=== PATIENT | female | born 1995 ===

== ENCOUNTER 2019-01-30 17:15 | Emergency (ER) | payer BC ==
[2019-01-30] MEDS ORDERED: Ketorolac 60 MG/2 ML SDV IM ONE (17:31)
--- NOTE | 2019-01-30 17:35 | EDM.PDOC ---
ED HPI GENERAL MEDICAL PROBLEM - General Chief Complaint: Lower Extremity Injury/Pain Stated Complaint: POSSIBLE BROKE ANKLE Time Seen by Provider: 01/30/19 17:25 - History of Present Illness INITIAL COMMENTS - FREE TEXT/NARRATIVE: HISTORY AND PHYSICAL: History of present illness: The patient is a healthy 23-year-old female who presents with complaints of pain to her left ankle after she misstepped in some sand and rolled it all trying to prevent falling with the child in her arms. The patient works at a daycare and said that when she misstepped off of this ledge into the sand and she lost her footing she started falling off to the left side and she did not want to hurt the child and she did not protect herself. She did not hit her head pass out or black out and has no head neck or back pain and has no extremity complaints on the upper extremities or on the right leg except a superficial scratch. She complains of pain mostly at the lateral left ankle where there is swelling and she says it is painful to weight-bear. The patient says the pain radiates up her leg but she doesn't have any discrete knee or hip pain no thigh pain and no distal foot or toe pain. The patient denies as she has an implant Review of systems: As per history of present illness and below otherwise all systems reviewed and negative. Past medical history: As per history of present illness and as reviewed below otherwise noncontributory. Surgical history: As per history of present illness and as reviewed below otherwise noncontributory. Social history: No reported history of drug or alcohol abuse. Family history: As per history of present illness and as reviewed below otherwise noncontributory. Physical exam: General: Well-developed well-nourished female who is nontoxic and vital signs are noted by me HEENT: Atraumatic, normocephalic, is no evidence of any scalp or facial trauma appreciated, negative for conjunctival pallor or scleral icterus, mucous membranes moist, throat clear, neck supple, nontender, trachea midline. Lungs: Clear to auscultation, breath sounds equal bilaterally, chest nontender. Heart: S1S2, regular rate and rhythm no overt murmurs Abdomen: Soft, nondistended, nontender. NABS Pelvis: Stable nontender. Genitourinary: Deferred. Rectal: Deferred. Extremities: Atraumatic, full range of motion of all extremities with the exception of the left ankle where there is swelling at the lateral malleolus but no malalignment of the ankle joint or palpable bony deformity. There is tenderness at the lateral malleolus but no tenderness in the proximal foot heel and metatarsals and no proximal tib-fib tenderness except for a slight discomfort at the proximal fibula. There is no knee hip or thigh tenderness on the left. On the right there is no bony defects deformities or soft tissue swelling but there is a superficial scrape seen on the anterior aspect of the tib-fib soft tissue which the patient is not concerned about.. Neurovascular unremarkable. Neuro: Awake, alert, oriented. Cranial nerves II through XII unremarkable. Cerebellum unremarkable. Motor and sensory unremarkable throughout. Exam nonfocal. Diagnostics: X-ray left ankle, left tib-fib Therapeutics: Ice pack, Toradol IM ortho boot and crutches Impression: Left ankle injury/sprain, r/o tiny avulsion fracture of distal fibula Definitive disposition and diagnosis as appropriate pending reevaluation and review of above. Left Ankle Pain Score (Numeric/FACES): 9 - Related Data Allergies Allergy/AdvReac Type Severity Reaction Status Date / Time No Known Allergies Allergy Verified 01/30/19 17:33 Home Meds: Home Meds . [No Known Home Meds] 01/30/19 [History] Review of Systems - Review of Systems Review Of Systems: ROS reveals no pertinent complaints other than HPI. ED EXAM, GENERAL - Physical Exam Exam: See Below (See dictation) Course - Vital Signs Last Recorded V/S: Last Vital Signs Temp 36.6 C 01/30/19 17:34 Pulse 78 01/30/19 17:34 Resp 18 01/30/19 17:34 BP 118/76 01/30/19 17:34 Pulse Ox 98 01/30/19 17:34 - Orders/Labs/Meds Orders: Active Orders 24 hr Category Date Time Status DME for Discharge [COMM] Stat Oth 01/30/19 18:23 Ordered Meds: Medications Discontinued Medications Generic Name Dose Route Start Last Admin Trade Name Freq PRN Reason Stop Dose Admin Ketorolac Tromethamine 60 mg 01/30/19 17:31 01/30/19 18:04 Toradol IM 01/30/19 17:32 60 mg ONETIME ONE Administration Departure - Departure Time of Disposition: 18:26 Disposition: Home, Self-Care 01 Condition: Good Clinical Impression: Left ankle injury Qualifiers: Encounter type: initial encounter Qualified Code(s): S99.912A - Unspecified injury of left ankle, initial encounter - Discharge Information Forms: ED Department Discharge Additional Instructions: The following information is given to patients seen in the emergency department who are being discharged to home. This information is to outline your options for follow-up care. We provide all patients seen in our emergency department with a follow-up referral. The need for follow-up, as well as the timing and circumstances, are variable depending upon the specifics of your emergency department visit. If you don't have a primary care physician on staff, we will provide you with a referral. We always advise you to contact your personal physician following an emergency department visit to inform them of the circumstance of the visit and for follow-up with them and/or the need for any referrals to a consulting specialist. The emergency department will also refer you to a specialist when appropriate. This referral assures that you have the opportunity for followup care with a specialist. All of these measure are taken in an effort to provide you with optimal care, which includes your followup. Under all circumstances we always encourage you to contact your private physician who remains a resource for coordinating your care. When calling for followup care, please make the office aware that this follow-up is from your recent emergency room visit. If for any reason you are refused follow-up, please contact the [facility] emergency department at and ask to speak to the emergency department charge nurse. [facility]--Orthopedic clinic Professional Building [address] [place] [id number] Ice and elevate the ankle as much as possible and wear the ortho boot at all times loosening the Velcro and/or removing it only at sleep times. Use crutches and do not weight-bear until you're followed up in the clinic. Please call and schedule a follow-up appointment using resources given to above. Use over-the- counter ibuprofen/Motrin and [id number] Tylenol as needed for pain and add the tramadol as needed for discomfort especially at sleep time. Return to ER as needed and as discussed - My Orders Last 24 Hours: My Active Orders 01/30/19 18:23 DME for Discharge [COMM] Stat - Assessment/Plan Last 24 Hours: My Active Orders 01/30/19 18:23 DME for Discharge [COMM] Stat
--- NOTE | 2019-01-30 18:21 | CR ---
Indication: Pain. Technique: Two views of the left lower leg were obtained. Comparison: None Findings: No acute fracture or subluxation is identified. The joint spaces are well maintained. Impression: No acute fracture. Dictated by Marlen Deleon MD @ Jan 30 2019 6:20PM Signed by Dr. Marlen Deleon @ Jan 30 2019 6:21PM
--- NOTE | 2019-01-30 18:21 | CR ---
Indication: Pain. Technique: Three views of the left ankle were obtained. Comparison: None Findings: A tiny calcific density is identified inferior to the lateral malleolus. Soft tissue swelling is identified laterally. The ankle mortise is intact. The talar dome is intact. Impression: Cannot exclude a tiny avulsion fracture of the distal fibula. Dictated by Marlen Deleon MD @ Jan 30 2019 6:19PM Signed by Dr. Marlen Deleon @ Jan 30 2019 6:20PM
== END 2019-01-30 18:48 | disposition home or self-care (01) ==
LOC: MW.ED 17:15
DX: S93.402A Sprain of unspecified ligament of left ankle, initial encounter (principal); X50.9XXA Other and unspecified overexertion or strenuous movements or postures, initial encounter
CPT/HCPCS: 73590; 73610; 96372; 99283; J1885